=== PATIENT | female | born 1985 | race Caucasian/White ===

== ENCOUNTER 2018-01-01 11:14 | Emergency (ER) | payer OTHER ==
--- NOTE | 2018-01-01 11:22 | ER Document Report ---
ED Psych Disorder / Suicide - General Stated Complaint: AMS Time Seen by Provider: 01/01/18 11:21 Mode of Arrival: Medic Information source: Emergency Med Personnel, [facility] Records TRAVEL OUTSIDE OF THE [place] IN LAST 30 DAYS: No - HPI Patient complains to provider of: Other - UNRESPONSIVE Onset: This morning - MAYBE SOMETIME LAST NIGHT, CAN'T DETERMINE EXACTLY. TEXT- MESSAGED SISTER LAST PM. Onset was: Cannot confirm Quality of pain: No pain Suicide Risk Factors: Depressed, Frightened friends/family Situational problems related to: Lost job Suicide Attempt Method: Overdose Overdose of: Other - PRESUMED OVERDOSE/INGESTION, LITTLE INFO AVAILABLE. SISTER SAYS PT. ON NO Rx MEDS, HAS DOG THAT IS ON GABAPENTIN & ALPRZOLAM Similar symptoms previously: No Recently seen / treated by doctor: No - Related Data Allergies/Adverse Reactions: No Known Allergies Allergy (Unverified 01/01/18 17:42) Past Medical History - General Information source: Patient - Social History Smoking Status: Unknown if Ever Smoked Lives with: Alone Family History: None Patient has suicidal ideation: Yes - Medical History Medical History: Negative Surgical Hx: Negative Review of Systems - Review of Systems -: Yes ROS unobtainable due to patient's medical condition Physical Exam - Vital signs Vitals: Resp Pulse Ox 20 95 01/01/18 11:18 01/01/18 11:18 Interpretation: Normal - General General appearance: Unresponsive - RESPONDS ONLY TO PAINFUL STIMULI - HEENT Head: Normocephalic, Atraumatic Eyes: Normal Conjunctiva: Normal Ears: Normal Nasal: Normal Mouth/Lips: Normal Mucous membranes: Normal - Respiratory Respiratory status: No respiratory distress Breath sounds: Normal - Cardiovascular Rhythm: Regular Heart sounds: Normal auscultation Murmur: No - Abdominal Inspection: Normal Distension: No distension - Extremities General upper extremity: Normal inspection General lower extremity: Normal inspection - Neurological Neuro grossly intact: No - UNCOOPERATIVE WITH FORMAL TESTING [place] Coma Scale Eye Opening: To Pain [place] Coma Scale Verbal: None [place] Coma Scale Motor: Localizes to Pain [place] Coma Scale Total: 8 - Skin Skin Temperature: Warm Skin Moisture: Dry Skin Color: Normal Skin Turgor: Elastic Course - Re-evaluation Re-evalutation: 01/01/18 19:56 Late entry: Patient was reevaluated approximately 1630 hrs. She was much more alert, and she was oriented and conversant. Vital signs were within normal limits. At that point she was considered to be medically stable, with monitoring no longer necessary. - Vital Signs Vital signs: Temp Pulse Resp BP Pulse Ox 96.9 F L 10 L 121/55 L 92 01/01/18 11:50 01/01/18 16:01 01/01/18 16:01 01/01/18 16:01 - Laboratory Result Diagrams: 01/01/18 11:44 01/01/18 11:44 Laboratory results interpreted by me: 01/01/18 01/01/18 01/01/18 11:44 11:44 11:44 WBC 23.5 H Seg Neuts % (Manual) 89 H Band Neutrophils % 2 L Lymphocytes % (Manual) 7 L Monocytes % (Manual) 2 L Abs Neuts (Manual) 21.4 H Potassium 5.1 H Carbon Dioxide 21 L Glucose 113 H Urine Ascorbic Acid 40 H Salicylates < 1.0 L Acetaminophen 69 H - Diagnostic Test Radiology reviewed: Image reviewed, Reports reviewed - EKG Interpretation by Me EKG shows normal: Sinus rhythm, [place], Intervals, QRS Complexes, ST-T Waves Rate: Normal Rhythm: NSR Discharge - Discharge Clinical Impression: Suicidal overdose Qualifiers: Encounter type: initial encounter Qualified Code(s): T50.902A - Poisoning by unspecified drugs, medicaments and biological substances, intentional self-harm , initial encounter Condition: Stable Disposition: PSYCH HOSP/UNIT
[2018-01-01 11:56] LABS: HEMATOCRIT 41.8 % (36.0-47.0); HEMOGLOBIN 14.4 g/dL (12.0-15.5); MEAN CORPUSCULAR HEMOGLOBIN 29.8 pg (27.0-33.4); MEAN CORPUSCULAR HGB CONC 34.5 g/dL (32.0-36.0); MEAN CORPUSCULAR VOLUME 86 fl (80-97); PLATELET COUNT 289 10^3/uL (150-450); RED BLOOD COUNT 4.84 10^6/uL (3.72-5.28); RED CELL DISTRIBUTION WIDTH 13.5 % (11.5-14.0); WHITE BLOOD COUNT 23.5 10^3/uL (4.0-10.5)
[2018-01-01 12:12] LABS: ABSOLUTE LYMPHOCYTES# (MANUAL) 1.6 10^3/uL (0.5-4.7); ABSOLUTE MONOCYTES # (MANUAL) 0.5 10^3/uL (0.1-1.4); ABSOLUTE NEUTROPHILS# (MANUAL) 21.4 10^3/uL (1.7-8.2); BAND NEUTROPHILS % (MANUAL) 2 % (3-5); BASOPHILS % (MANUAL) 0 % (0-2); EOSINOPHILS % (MANUAL) 0 % (0-6); LYMPHOCYTES % (MANUAL) 7 % (13-45); MONOCYTES % (MANUAL) 2 % (3-13); SEGMENTED NEUTROPHILS % (MAN) 89 % (42-78); TOTAL CELLS COUNTED 100
[2018-01-01 12:13] LABS: OVALOCYTES SLIGHT; PLATELET COMMENT ADEQUATE; POIKILOCYTOSIS SLIGHT; POLYCHROMASIA SLIGHT; TOXIC GRANULATION SLIGHT; TOXIC VACUOLATION PRESENT
[2018-01-01 12:17] LABS: APPEARANCE,URINE CLEAR; BILIRUBIN,URINE NEGATIVE (NEGATIVE); COLOR,URINE YELLOW; GLUCOSE, URINE NEGATIVE (NEGATIVE); KETONES,URINE NEGATIVE (NEGATIVE); LEUKOCYTE ESTERASE,URINE NEGATIVE (NEGATIVE); NITRITE,URINE NEGATIVE (NEGATIVE); PROTEIN,URINE NEGATIVE (NEGATIVE); URINE SPECIFIC GRAVITY 1.041; UROBILINOGEN,URINE NEGATIVE mg/dL (<2.0)
[2018-01-01 12:22] LABS: ACETAMINOPHEN 69 ug/mL (10-30); ALANINE AMINOTRANSFERASE 39 U/L (9-52); ALBUMIN 4.5 g/dL (3.5-5.0); ALKALINE PHOSPHATASE 102 U/L (38-126); ANION GAP 14 (5-19); ASPARTATE AMINO TRANSFERASE 31 U/L (14-36); BILIRUBIN,DIRECT 0.2 mg/dL (0.0-0.4); BILIRUBIN,TOTAL 0.5 mg/dL (0.2-1.3); BLOOD UREA NITROGEN 12 mg/dL (7-20); CALCIUM 9.4 mg/dL (8.4-10.2); CARBON DIOXIDE 21 mmol/L (22-30); CHLORIDE 106 mmol/L (98-107); GLUCOSE 113 mg/dL (75-110); POTASSIUM 5.1 mmol/L (3.6-5.0); SODIUM 141.4 mmol/L (137-145); TOTAL PROTEIN 7.5 g/dL (6.3-8.2)
[2018-01-01 12:24] LABS: ALCOHOL < 10 mg/dL (NONE DETECTED); SALICYLATE < 1.0 mg/dL (2.0-20.0)
[2018-01-01 12:29] LABS: URINE AMPHETAMINES SCREEN NEGATIVE; URINE BARBITURATES SCREEN NEGATIVE; URINE BENZODIAZEPINES SCREEN UNCONFIRMED POSITIVE; URINE COCAINE SCREEN NEGATIVE; URINE MARIJUANA (THC) SCREEN NEGATIVE; URINE METHADONE SCREEN NEGATIVE; URINE PHENCYCLIDINE SCREEN NEGATIVE
[2018-01-01] MEDS ORDERED: NORMAL SALINE 1000 ML IV ONE (12:56)
[2018-01-01 13:15] LABS: VENOUS BLOOD BASE EXCESS -3.1 mmol/L; VENOUS BLOOD HCO3 22.1 mmol/L (20-32); VENOUS BLOOD PCO2 40.1 mmHg (35-63); VENOUS BLOOD PH 7.36 (7.30-7.42)
--- NOTE | 2018-01-01 13:56 | RADIOLOGY REPORT (SQ) ---
EXAM DESCRIPTION: CT HEAD WITHOUT COMPLETED DATE/TIME: 01/01/2018 1:45 pm REASON FOR STUDY: UNRESPONSIVE COMPARISON: None. TECHNIQUE: Axial images acquired through the brain without intravenous contrast. Images reviewed wi th bone, brain and subdural windows. Additional sagittal and coronal reconstructions were generated. Images stored on PACS. All CT scanners at this facility use dose modulation, iterative reconstruction, and/or weight based d osing when appropriate to reduce radiation dose to as low as reasonably achievable (ALARA). [facility]: Dose Right [facility]: CareDose [facility]: Dose Right [facility]: Teradose 4D [facility]: EquityZen RADIATION DOSE: CT Rad equipment meets quality standard of care and radiation dose reduction techniq ues were employed. CTDIvol: 53.2 mGy. DLP: 964 mGy-cm. mGy. LIMITATIONS: None. FINDINGS: VENTRICLES: Normal size and contour. CEREBRUM: No masses. No hemorrhage. No midline shift. No evidence for acute infarction. Normal gra y/white matter differentiation. No areas of low density in the white matter. CEREBELLUM: No masses. No hemorrhage. No alteration of density. No evidence for acute infarction. EXTRAAXIAL SPACES: No fluid collections. No masses. ORBITS AND GLOBE: No intra- or extraconal masses. Normal contour of globe without masses. CALVARIUM: No fracture. PARANASAL SINUSES: No fluid or mucosal thickening. SOFT TISSUES: No mass or hematoma. OTHER: No other significant finding. IMPRESSION: NORMAL BRAIN CT WITHOUT CONTRAST. EVIDENCE OF ACUTE STROKE: NO. COMMENT: Quality ID # [id number]: Final reports with documentation of one or more dose reduction techniques (e.g., Automated exposure control, adjustment of the mA and/or kV according to patient size, use of iterative reconstruction technique) TECHNICAL DOCUMENTATION: JOB ID: [id number] [employer]- All Rights Reserved Reading location - IP/workstation name: [email or web address]
--- NOTE | 2018-01-01 16:00 | PSYCHOLOGICAL NOTE ---
Psych Note - Psych Note Psych Note: Reason for consult: Intentional overdose/suicide attempt Eval: 1500 Contact permissions : Patient's father Morgan Herrera [phone] ; Patient's mother Vibha Herrera ; patient's sister Sydni Herrera [phone] Patient is a 32-year-old female. 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 Patient reports she has been struggling with depression, and stated over the last month she has had suicidal ideation. Patient reports she felt "wanting to sleep forever". Patient reports that in 2014 she stopped taking medications for her bipolar disorder. Patient reports she has had bipolar disorder since her teenage years and states that she cycled through onelia and depression with the early 20s being mainly onelia. Patient reported for the last 3 years she has not had onelia but has struggled with depression. 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 Patient reports she began having panic attacks crying before and after work and being afraid she was going to mess up at work. Patient reports she loved being a nurse practitioner but stated that the preceptors were never available and she had difficult patient's and not enough training. Patient reports she felt like she had failed because she was not able to work here and quit. Patient reports she had moved here from out of state for the job. Patient reports her sister lived in [place] and is a twin so they are close. Patient reports her mother and father live in [place]. Patient reports she graduated from [employer] but was not able to graduate with her class and stated that that was a disappointment as well and she experienced depression then. Patient reports last week she started the training and today was supposed to be the official first day. Patient reports she had planned to take pills and today she took 4 Xanax, 9 Lortab, and 3 gabapentin in a suicide attempt. Patient reports she text her sister Sydni Herrera stating she would like her to take care of her animals for her and make sure to feed them. Patient reports her sister noticed something was wrong and came to her finding her unresponsive and called EMS. Patient reports she has not had therapy, and also has never been to a psychiatric hospital. Patient reports she did not tell anyone about her depression because she was a professional and was raised to be strong and get through "it". Patient reports she is not regretful that she attempted suicide. Patient reports she is thinking now about how her family would have missed her, but states that she cant get over the depression and just "doesn't want to wake up". During assessment patient was vomiting on and off. Clinician observed patient appears groggy and has difficulty expressing herself. Clinician observed patient is extremely tearful throughout assessment. Collateral information: Patient's sister Sydni Herrera Present is patient's sister and patient. Patient's sister reports there were no warning signs leading up to this suicide attempt. Patient's sister reports the only time she was worried something was wrong with her sister was last fall when she was working at [employer] and had been calling her sister talking about her panic attacks and being tearful. Patient's sister reports she is concerned for her sister safety and feels this was an actual suicide attempt. Patient's sister reports their parents are driving from [place] right now to visit her. Patient's sister reports she knows that her sister has struggled with depression but has never seen at this severe where she would actually attempt suicide. Patient's sister reports last week patient had orientation and today was going to be the actual first day. Medication recommendation made by psychiatric provider Dr. Reese MD. includes : 1. Depakote 250 mg twice a day 2. Zyprexa 2.5 mg twice a day Diagnosis: 296.43 ( F31.13) Bipolar I disorder current episode depressed; severe Impression/plan: Recommendation for involuntary petition as a hold. Mental health to reassess at a later time. Medication recommendations were made by contracted provider to assist in mood stabilization. Clinician observed patient' s psychiatric symptoms are congruent with a depressive episode, as evidenced by extreme tearless, feelings of hopelessness, per reports inability to enjoy what she previously loved ( e.g. being a nurse practitioner) and Consulted with Dr. Jackson regarding the management and care of patient.
[2018-01-01] MEDS ORDERED: ONDANSETRON 4 MG TAB.RAPDIS PO ONE (18:09)
[2018-01-01] MEDS ORDERED: ONDANSETRON HCL INJ/PF 4 MG/2 ML SDV IV ONE (18:55)
--- NOTE | 2018-01-01 19:23 | EKG REPORT ---
SEVERITY:- NORMAL ECG - SINUS RHYTHM : Confirmed by: Sandy Burrell 01-Jan-2018 19:21:55
[2018-01-01] MEDS: DIVALPROEX SODIUM 250 MG TABLET.DR PO SCH (20:26)
[2018-01-01] MEDS: OLANZAPINE 2.5 MG TABLET PO SCH (20:26)
--- NOTE | 2018-01-02 09:48 | ER Document Report ---
Doctor's Note Notes: 01/02/18 09:48 Patient has been seen and evaluated resting comfortably no acute distress. Laboratory values previous provider note and vital signs have been evaluated. Patient otherwise looks to be stable for disposition/transfer.
[2018-01-02] MEDS: DIVALPROEX SODIUM 250 MG TABLET.DR PO SCH (10:15)
[2018-01-02] MEDS: OLANZAPINE 2.5 MG TABLET PO SCH (10:15)
--- NOTE | 2018-01-02 15:42 | PSYCHOLOGICAL NOTE ---
Psych Note - Psych Note Psych Note: Reason for consult: Suicidal ideation Re-eval: 899 Final Dispo: 10:00 am Contact permissions : Patient's father Morgan Herrera [phone] ; Patient's mother Vibha Herrera ; patient's sister Sydni Herrera [phone] ; patient's place of employment [phone] [place] ([employer])( just to notify she is in hospital). Patient is a 32-year-old female. 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 Patient reports she does not feel suicidal and agrees with her family that she has to take care of herself before she can take care of others. Patient reports she was taking care of her friends worrying about them and not focusing on the untreated depression. Patient reports that she was "lazy" in obtaining appointments stating that she had to go to a primary care provider to get a referral for her neuropsychologist and felt like it was "jumping through hoops" and stated she did not want to deal with all the paperwork and repeating herself about her mental health so she had not gone. Patient reports she realized now that she needs to follow through and take care of her mental health. 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 Patient reports that she will reach out to her family more often and her support system. 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 Patient reports she is thankful that she has a job now as she was unemployed for a little bit in between the jobs but is now able to work for the [employer]. Patient reports that the [employer] job she is screening whether or not people will get disability and states that that she is able to do this job. Patient reports in the future she is hoping she can work in the emergency department again. Patient reports she plans on taking a post masters course for nurse practitioners so she can learn more about the emergency room setting and hopefully in the future use the skills and another hospital. Patient reports her sister often sleeps over and is a strong support system. Patient reports her mother is going to be staying with her until she gets better as her mother does not have a job. Patient reports she wants clinician to contact job and let them know she was in the hospital. Collateral information patient's mother and father present in the room Patient's mother reports she knew her daughter had depression and knew it was untreated. Patient's mother reports in the past when patient was on her medication Effexor it was helpful and she was not depressed. Patient's mother reports patient often takes care of others before taking care of herself. Patient's mother reports that she wants to be there for her as she is a social support system for patient and will monitor her at home manage her meds and make sure she gets to an appointment. Patient's mother reports that last week patient found out her dog was going to need to be euthanized due to being 14 years old and having "abnormal blood work" patient's mother reports patient has had that dog since it was 6 weeks and states that she feels the event influenced the depression. Patient's mother reports patient loves her animals and loves her job and since the hospital job "didnt fall through" and being unemployed and not wanting to reach out for financial help she felt it was all situational factors contributing to the depression. Patient's mother reports she wants patient to see a specialist to see if there are any imbalances or anything neurological happening. Patient's mother reports patient has family that is very supportive and trust that things are going to get better for patient if she continues to take care of her mental health. Medication recommendation made by psychiatric provider Dr. Reese MD. includes : 1. Continue Depakote 250 mg twice a day 2. Continue Zyprexa 2.5 mg twice a day Diagnosis: 296.43 ( F31.13) Bipolar I disorder current episode depressed;severe Impression/plan: Patient is psychiatrically cleared for discharge. Recommendation for patient to follow-up with outpatient therapy provider and medication management provider. Patient's mother Byron Herrera present in the emergency room and agrees to monitor patient at home, monitor patient's medication administration, and assist patient in obtaining a therapy appointment. Patient's sister Sydni agrees to monitor patient when patient's mother is unavailable, until patient has received an additional assessment with an outpatient mental health provider. Patient is expressing future oriented thoughts, planning on returning to employment, and is not endorsing suicidal ideation. Patient presents with a brighter affect, and is not groggy and able to fully answer assessment questions. Yesterday when patient arrived she was groggy, and tearful due to taking medications, and reports not feeling that way now. Consulted with Dr. Jackson regarding the management and care of patient.
[2018-01-02 16:17] VITALS: BP 128/71
== END 2018-01-02 16:24 | disposition home or self-care (01) ==
LOC: ER 11:14
DX: T42.4X2A Poisoning by benzodiazepines, intentional self-harm, initial encounter (principal); T42.6X2A Poisoning by other antiepileptic and sedative-hypnotic drugs, intentional self-harm, initial encounter; T50.902A Poisoning by unspecified drugs, medicaments and biological substances, intentional self-harm, initial encounter; Y92.009 Unspecified place in unspecified non-institutional (private) residence as the place of occurrence of the external cause; F31.9 Bipolar disorder, unspecified
CPT/HCPCS: 93005; 99285; 96361; 51702; 96374; 36415; 82962; 80307 ×4; 84703; 85025; 80053; 81001; 82803; 70450; 93010; J3490 ×2; J2405; J7030